=== PATIENT | female | born 1925 | race Caucasian/White ===

== ENCOUNTER → 2017-04-23 | Outpatient (CLI) | payer OTHER ==
[~2017-04-23] VITALS: Ht 157.5 cm; Wt 67.7 kg
[~2017-04-23] MED LIST: ADULT LOW DOSE81 MG PO; ATIVAN0.5 MG PO; ATORVASTATIN CA40 MG PO; CARDIZEM CD120 MG PO; CARDIZEM CD180 MG PO; COUMADIN 4 MG TA4 M1 PO; FLEXERIL PO; GLYBURIDE 2.52.5 MG PO; HYDROCODON-ACE1 EAC7 PO; HYDROCODONE-AP1 EA10 PO; JANTOVEN2 MG PO; LEVOTHYROXIN0.075 MG PO; LIDODERM 5%1 PATC1 TRANSDERM; MACRODANTIN100 MG PO; MEDROLDOSEPACK PO; NAPROSYN500 MG PO; NEXIUM20 MG PO; NORCO 5-325 TA1 EACH PO; NORFLEX100 MG PO; PROBIOTIC1 EAC1 PO; PROZAC20 MG/5 ML PO; QUINAPRIL 20 MG20 MG PO; QUINAPRIL HCL40 MG PO; SERTRALINE HCL50 MG PO; SYNTHROID100 MCG PO; TRAMADOL 50 MG50 MG PO; TYLENOL325 MG PO; ULTRAM 50MG TAB50 MG PO; VALIUM5 MG PO; VITAMIN D1000 UNI1 PO; WELLBUTRIN SR150 MG PO
--- NOTE | ~2017-04-23 | HPC ---
[facility] [place] [address] PAIN MANAGEMENT CONSULTATION Name: PRETTY MONET Room #: REG [facility].#: [id number] Admission: 04/23/17 Attend Phys: Boone Luis DO Discharge: Date of : [birth year] Report #: [id number] THIS REPORT FOR: //name// CC: Rhea Luis DATE OF SERVICE: 04/23/2017 CHIEF COMPLAINT: Right upper buttock and posterolateral thigh pain. HISTORY OF PRESENT ILLNESS: As you know, the patient is an 89-year-old female who sustained a slip and fall injury on a hard wood floor recently. She states she was of normal cognition. She lost no consciousness. She was not dizzy before the fall. She states she "just fell." She fell directly on what appears to be the sacroiliac joint on the right side exacerbating symptoms located over this area. Pain begins in low back, right buttock area. She states the pain is aching, sore, tenderness and sensation, places current pain score 2/10. Activities such as walking, standing seems to exacerbate symptoms. Medication and sitting appears to improve pain. She has returned today in followup visit with what appears to be right sacroiliac joint pain related to this fall. ALLERGIES: No known drug allergies. CURRENT MEDICATIONS: Tylenol, cholecalciferol, omeprazole, glyburide, quinapril, bupropion, atorvastatin, diltiazem, levothyroxine, sertraline, warfarin. SOCIAL HISTORY: The patient denies tobacco, alcohol, IV or illicit drug use. She is unaccompanied today. IMAGING: No new imaging available. PHYSICAL EXAMINATION: VITAL SIGNS: Blood pressure 159/86, pulse 70, respiratory rate 16, unlabored. The patient is 98% on room air, height 5 feet 2 inches tall, weight 149.2 pounds, BMI calculated 27.3. GENERAL: Well-developed, well-nourished, well-hydrated 89-year-old female, appears stated age, placing current pain score around 2/10. HEENT: Normocephalic, atraumatic. Pupils are equal, round, reactive to light. Extraocular muscles are intact. Sclerae are nonicteric without injection. EXTREMITIES: Show no clubbing, no cyanosis, no edema. MUSCULOSKELETAL: There is palpatory tenderness over the right sacroiliac joint when compared to left. Deep palpation in area causes intensification of pain. There is no ecchymosis over the buttock area or low back. There does not appear to be any rashes or lesions. Seated straight leg raising negative. Supine [address] [address] PAIN MANAGEMENT CONSULTATION Name: PRETTY MONET Room #: REG [facility] M..#: [id number] Admission: 04/23/17 Attend Phys: Boone Luis DO Discharge: Date of : 10[birth year] Report #: [id number] straight leg raising is positive only for SI joint dysfunction, no lumbar radicular component. Ankle clonus negative. Babinski is negative. Gait is antalgic favoring right lower extremity over left. ASSESSMENT: 1. Right sacroiliac joint dysfunction. 2. Chronic lumbar radiculopathy. 3. Displacement of lumbar intervertebral disk with radicular symptoms. 4. Lumbosacral spondylosis with radicular symptoms. 5. Lumbar degeneration. 6. Chronic intractable pain. PLAN: 1. The patient returns today in followup visit with acute onset of right upper buttock and posterolateral thigh pain. This is related to a fall that she sustained recently. The patient indicates no dizziness, no disorientation, no confusion prior to fall. She states she was in her normal state of health when she sustained this fall. This led to increasing buttock pain on the right side. She did not seek evaluation from her primary care physician nor did she take herself to the hospital. She states she has been "dealing with it." She states the pain has become intense, has not begun to improve and so she sought evaluation. It does appear today, the patient is suffering from sacroiliac joint dysfunction. This would correlate with the patient's recent fall on the right buttock area. We discussed with the patient options for treatment for SI joint dysfunction today. The following was discussed. 2. The patient and I discussed treatment options for SI joint dysfunction including physical therapy, stretching exercise chiropractic manipulation and doctors of osteopathy manipulating the SI joint. We discussed medication management with nonsteroidal anti-inflammatories and a low dose opioid for pain control. We discussed intraarticular SI joint injections and ultimate fusion of the SI joint. After reviewing risks and benefits of all proposed treatment options, the patient chose to begin with the SI joint injection. 3. The patient was advised risks and benefits of an SI joint injection. These risks include but are not necessarily limited to bleeding, bruising, infection, worsening pain, no relief of pain, also risk of temporary or permanent muscle weakness, temporary or permanent nerve damage, possible paralysis and . The patient states understood and wished to proceed. 4. No medication changes were made at today's visit. The patient will continue current medical therapy as previously prescribed. 5. The patient will return to our clinic on an as needed basis for possible repeat SI joint injection. PROCEDURE NOTE: DESCRIPTION OF PROCEDURE: Right sacroiliac joint injection under fluoroscopic guidance. [facility] [address] [place] [address] PAIN MANAGEMENT CONSULTATION Name: PRETTY MONET Room #: REG [facility].#: [id number] Admission: 04/23/17 Attend Phys: Boone Luis DO Discharge: Date of : 10/[birth year] Report #: [id number] This is the first procedure of the first series that the patient is undergoing. After obtaining written consent, the patient was taken back to the fluoroscopy suite and placed in a prone position with a pillow under the pelvis to decrease the lumbar lordosis. The skin of the gluteal-sacral area overlying the right sacroiliac joint was prepped and draped in an aseptic fashion. A medial to lateral oblique projection allowed separation of the anterior and posterior branches of the joint space. The skin and subcutaneous tissue overlying the target site of injection was anesthetized using 3 mL of 1% lidocaine. A 22-gauage 3-1/2 inch needle with a bent tip was directed into the inferior aspect of the sacroiliac joint using a posterior approach. A giving way at the needle hub was noted once the dorsal sacroiliac and interosseous ligaments were engaged. After negative aspiration for heme, a total of 0.4 mL of Omnipaque was injected, outlining the coin-shaped inferior recess of the joint. Provocation responses consisting of intense buttock pain were negative. After negative aspiration for heme, 3 mL of a solution containing 1 mL 40 mg per mL 40 mg total triamcinolone, 2 mL bupivacaine 0.5% was slowly injected. The needle was then retracted approximately fpc and the needle track was flushed with 1 mL of 1% lidocaine. Needle was then removed. A sterile bandage was placed over the injection site. There were no new sensory deficits present in the lower extremities. The heart rate, pulse oximetry and blood pressure were continuously monitored after the procedure. There were no apparent complications. The patient tolerated the procedure well and was carefully escorted to the recovery room in stable condition. The VAS was 2/10 before the procedure and 0/10 ten minutes after the procedure. After meeting discharge criteria, the patient was discharged home. <ELECTRONICALLY SIGNED> By: Boone Luis DO 05/01/17 [id number] Boone Luis DO /nt
[2017-04-23 09:39] VITALS: BP 159/86
== END | disposition home or self-care (01) ==
LOC: PAIN 07:11
DX: M53.3 Sacrococcygeal disorders, not elsewhere classified (principal); M51.16 Intervertebral disc disorders with radiculopathy, lumbar region; M47.27 Other spondylosis with radiculopathy, lumbosacral region; G89.29 Other chronic pain; Z91.81 History of falling; Z87.891 Personal history of nicotine dependence